=== PATIENT | male | born 1990 | race African-American/Black ===

== ENCOUNTER 2021-12-08 06:57 | Emergency (ER) | payer OTHER | END 2021-12-08 09:00 | disposition home or self-care (01) | LOC: CSHERS 06:57 | DX: U07.1 COVID-19 (principal); F17.220 Nicotine dependence, chewing tobacco, uncomplicated | CPT/HCPCS: 71046; 87804; U0003; U0005 ==

== ENCOUNTER 2022-11-12 01:17 | Emergency (ER) | payer OTHER | END 2022-11-12 01:47 | disposition home or self-care (01) | LOC: CSHERS 01:17 | DX: Z11.3 Encounter for screening for infections with a predominantly sexual mode of transmission (principal); F17.220 Nicotine dependence, chewing tobacco, uncomplicated | CPT/HCPCS: 99283 ==

== ENCOUNTER 2023-01-03 12:30 | Emergency (ER) | payer OTHER | END 2023-01-03 14:14 | LOC: CSHERS 12:30 | DX: Z53.21 Procedure and treatment not carried out due to patient leaving prior to being seen by health care provider (principal) ==

== ENCOUNTER 2023-06-03 12:57 | Emergency (ER) | payer OTHER | END 2023-06-03 13:42 | disposition home or self-care (01) | LOC: CSHERS 12:57 | DX: B35.4 Tinea corporis (principal); L30.4 Erythema intertrigo; F17.220 Nicotine dependence, chewing tobacco, uncomplicated | CPT/HCPCS: 99282 ==

== ENCOUNTER 2023-08-31 22:38 | Emergency (ER) | payer OTHER | END 2023-09-01 00:15 | disposition home or self-care (01) | LOC: CSHERS 22:38 | DX: F43.0 Acute stress reaction (principal); F17.210 Nicotine dependence, cigarettes, uncomplicated; F17.220 Nicotine dependence, chewing tobacco, uncomplicated | CPT/HCPCS: 99284 ==

== ENCOUNTER 2024-03-29 18:17 | Emergency (ER) | payer OTHER ==
[2024-03-29] MEDS ORDERED: Ketorolac Tromethamine 30 MG (1 mL) VIAL ONE (18:52)
== END 2024-03-29 19:16 | disposition home or self-care (01) ==
LOC: CSHERS 18:17
DX: M25.562 Pain in left knee (principal); W19.XXXA Unspecified fall, initial encounter
CPT/HCPCS: 96372; 99283; J1885

== ENCOUNTER 2024-04-08 20:27 | Emergency (ER) | payer OTHER ==
[2024-04-08] MEDS ORDERED: Dexamethasone 10 MG/ML VIAL ONE (22:08)
== END 2024-04-08 22:15 | disposition home or self-care (01) ==
LOC: CSHERS 20:27
DX: J02.9 Acute pharyngitis, unspecified (principal); F17.210 Nicotine dependence, cigarettes, uncomplicated
CPT/HCPCS: 87081; 87430; 99283; J1100